=== PATIENT | male | born 1995 | race American Indian/Alaskan Native ===

== ENCOUNTER 2019-02-17 23:54 | Inpatient (IN) ==
[2019-02-18] MEDS: SODIUM CHLORIDE 0.9% 1,000 ML IV SCH ×4 (01:10→23:23)
[2019-02-18] MEDS ORDERED: HYDROmorphone 2 MG/1 ML VIAL IV PRN ×2 (01:18→16:44)
[2019-02-18] MEDS ORDERED: ONDANSETRON 4 MG/2 ML VIAL IV PRN (01:18)
[2019-02-18] MEDS ORDERED: ACETAMINOPHEN 325 MG TABLET PO PRN (01:18)
[2019-02-18 01:49] LABS: Basophils # 0.1 10*3/uL (0.0-0.2); Basophils % 0.4 % (0.0-0.8); Eosinophils # 0.1 10*3/uL (0.0-0.87); Eosinophils % 0.6 % (0.00-10.9); Hematocrit 38.7 VOL% (42.0-52.0); Hemoglobin 13.1 GM/DL (14.0-18.0); Immature Granulocytes % 0.5 %; Lymphocytes # 2.7 10*3/uL (1.4-4.0); Lymphocytes % 13.9 % (21.2-54.2); Mean Corpuscular HGB Conc 33.9 GM/DL (32-36); Mean Corpuscular Volume 94.2 FL (87-102); Mean Platelet Volume 9.7 FL (9.6-12.0); Monocytes % 10.1 % (1.7-12.7); Neutrophils % 74.5 % (38.7-73.9); Platelet Count 228 T/CUMM (130-400); Red Blood Count 4.11 MC/CUMM (3.8-5.5); Red Cell Distribution Width 13.7 % (9.3-17.3); White Blood Count 19.6 T/CUMM (4-12)
[2019-02-18] MEDS: PIPERACILLIN/TAZOBACTAM 3,375 MG in SODIUM CHLORIDE 0.9% 100 ML IV SCH ×3 (02:30→18:22)
[2019-02-18 02:35] LABS: Albumin 4.2 G/DL (3.4-5.0); Bilirubin,Total 0.6 MG/DL (0.2-1.0); Calcium 8.9 MG/DL (8.5-10.1); Osmolality,Calculated 292.4 MOS/KG (273-304); Total Protein 7.6 G/DL (6.4-8.3)
[2019-02-18] MEDS: PANTOPRAZOLE 40 MG VIAL IV SCH (08:40)
[2019-02-18] MEDS ORDERED: LIDOCAINE 1%/EPI INJ 20 ML VIAL ONE (12:37)
[2019-02-18] MEDS ORDERED: BUPIVACAINE 0.5% 50 ML VIAL ONE (12:37)
[2019-02-18] MEDS ORDERED: TISSUE ADHESIVE 1 EACH APPLICATOR TOP ONE (12:38)
[2019-02-18] MEDS ORDERED: ceFAZolin 1,000 MG VIAL ONE (13:31)
[2019-02-18] MEDS ORDERED: MIDAZOLAM 2 MG/2 ML VIAL ONE (16:14)
[2019-02-18] MEDS ORDERED: LIDOCAINE 2% 5 ML VIAL ONE (16:14)
[2019-02-18] MEDS ORDERED: SEVOFLURANE 1 UNIT/15 MINUTE INH ONE (16:14)
[2019-02-18] MEDS ORDERED: PROPOFOL 200 MG/20 ML VIAL IV ONE (16:14)
[2019-02-18] MEDS ORDERED: GLYCOPYRROLATE 0.4 MG/2 ML VIAL ONE (16:15)
[2019-02-18] MEDS ORDERED: fentaNYL 100 MCG/2 ML VIAL ONE (16:15)
[2019-02-18] MEDS ORDERED: DEXAMETHASONE 4 MG/1 ML VIAL ONE (16:15)
[2019-02-18] MEDS ORDERED: ROCURONIUM 100 MG/10 ML VIAL IV ONE (16:15)
[2019-02-18] MEDS ORDERED: ONDANSETRON 4 MG/2 ML VIAL ONE (16:15)
[2019-02-18] MEDS ORDERED: LACTATED RINGERS 1,000 ML IV ONE (16:15)
[2019-02-18] MEDS ORDERED: NEOSTIGMINE 10 MG/10 ML VIAL ONE (16:15)
[2019-02-19] MEDS: PIPERACILLIN/TAZOBACTAM 3,375 MG in SODIUM CHLORIDE 0.9% 100 ML IV SCH ×3 (01:05→17:16)
[2019-02-19 05:36] LABS: Basophils % 0.2 % (0.0-0.8); Eosinophils % 0.1 % (0.00-10.9); Hemoglobin 11.7 GM/DL (14.0-18.0); Immature Granulocytes % 0.8 %; Immature Granulocytes Absolute 0.15 #; Lymphocytes # 1.6 10*3/uL (1.4-4.0); Lymphocytes % 8.2 % (21.2-54.2); Mean Corpuscular HGB Conc 33.4 GM/DL (32-36); Mean Corpuscular Volume 94.1 FL (87-102); Monocytes % 9.8 % (1.7-12.7); Neutrophils % 80.9 % (38.7-73.9); Platelet Count 208 T/CUMM (130-400); Red Blood Count 3.72 MC/CUMM (3.8-5.5); Red Cell Distribution Width 13.7 % (9.3-17.3); White Blood Count 19.4 T/CUMM (4-12)
[2019-02-19 06:00] LABS: Osmolality,Calculated 280.4 MOS/KG (273-304)
[2019-02-19] MEDS: SODIUM CHLORIDE 0.9% 1,000 ML IV SCH ×3 (06:46→17:18)
[2019-02-19] MEDS: PANTOPRAZOLE 40 MG VIAL IV SCH (08:32)
[2019-02-20] MEDS: SODIUM CHLORIDE 0.9% 1,000 ML IV SCH ×3 (02:04→17:15)
[2019-02-20] MEDS: PIPERACILLIN/TAZOBACTAM 3,375 MG in SODIUM CHLORIDE 0.9% 100 ML IV SCH ×3 (02:05→17:15)
[2019-02-20 05:58] LABS: Basophils # 0.1 10*3/uL (0.0-0.2); Basophils % 0.4 % (0.0-0.8); Eosinophils # 0.1 10*3/uL (0.0-0.87); Eosinophils % 0.9 % (0.00-10.9); Hematocrit 33.1 VOL% (42.0-52.0); Hemoglobin 11.1 GM/DL (14.0-18.0); Immature Granulocytes % 0.4 %; Immature Granulocytes Absolute 0.06 #; Lymphocytes # 2.4 10*3/uL (1.4-4.0); Lymphocytes % 18.2 % (21.2-54.2); Mean Corpuscular HGB Conc 33.5 GM/DL (32-36); Mean Corpuscular Volume 94.3 FL (87-102); Mean Platelet Volume 10.2 FL (9.6-12.0); Monocytes % 12.7 % (1.7-12.7); Neutrophils % 67.4 % (38.7-73.9); Platelet Count 176 T/CUMM (130-400); Red Blood Count 3.51 MC/CUMM (3.8-5.5); Red Cell Distribution Width 13.8 % (9.3-17.3); White Blood Count 13.4 T/CUMM (4-12)
[2019-02-20 06:31] LABS: Calcium 8.5 MG/DL (8.5-10.1); Osmolality,Calculated 283.8 MOS/KG (273-304)
[2019-02-20] MEDS: PANTOPRAZOLE 40 MG VIAL IV SCH (09:39)
[2019-02-21] MEDS: PIPERACILLIN/TAZOBACTAM 3,375 MG in SODIUM CHLORIDE 0.9% 100 ML IV SCH ×2 (01:18→09:54)
[2019-02-21] MEDS: SODIUM CHLORIDE 0.9% 1,000 ML IV SCH ×2 (01:22→09:53)
[2019-02-21 05:49] LABS: Basophils % 0.4 % (0.0-0.8); Eosinophils # 0.4 10*3/uL (0.0-0.87); Hematocrit 33.7 VOL% (42.0-52.0); Hemoglobin 11.3 GM/DL (14.0-18.0); Immature Granulocytes % 0.4 %; Immature Granulocytes Absolute 0.04 #; Lymphocytes # 2.5 10*3/uL (1.4-4.0); Lymphocytes % 25.6 % (21.2-54.2); Mean Corpuscular HGB Conc 33.5 GM/DL (32-36); Mean Corpuscular Volume 92.8 FL (87-102); Mean Platelet Volume 10.3 FL (9.6-12.0); Neutrophils % 55.6 % (38.7-73.9); Platelet Count 184 T/CUMM (130-400); Red Blood Count 3.63 MC/CUMM (3.8-5.5); Red Cell Distribution Width 13.3 % (9.3-17.3); White Blood Count 9.7 T/CUMM (4-12)
[2019-02-21 06:03] LABS: Calcium 8.6 MG/DL (8.5-10.1); Osmolality,Calculated 283.8 MOS/KG (273-304)
[2019-02-21] MEDS: PANTOPRAZOLE 40 MG VIAL IV SCH (08:04)
[2019-02-21 11:54] VITALS: BP 132/76
== END 2019-02-21 13:13 | disposition home or self-care (01) | DRG 329 ==
LOC: N.ED 23:54 → N.EDINP 02-18 00:17 → N.3E 02-18 00:42
PROVIDERS: ADMIT Student in an Organized Health Care Education/Training Program; ATTEND Student in an Organized Health Care Education/Training Program